=== PATIENT | female | born 1970 | race Caucasian/White ===

== ENCOUNTER 2022-11-22 02:00 | Outpatient (CLI) | payer BC, SELFPAY | END 2022-11-22 02:01 | disposition home or self-care (01) | LOC: AMB 11-23 09:13 | PROVIDERS: Visit Provider Family Medicine | DX: R45.851 Suicidal ideations (principal) | CPT/HCPCS: A0425; A0427 ==

== ENCOUNTER 2022-11-22 03:10 | Emergency (ER) | payer BC, SELFPAY ==
[2022-11-22 03:15] VITALS: O2SAT 88
[2022-11-22] MEDS: ONDANSETRON 2 MG/ML inj 4 MG IVP (03:20)
[2022-11-22] MEDS: 0.9 % SODIUM CHLORIDE 1000 ml 1,000 ML 2000 ML IV (03:20)
[2022-11-22 03:28] VITALS: BP 135/96; PULSE 99; RESP 18; TEMP 36.8; O2SAT 88; BMI 20.9
[2022-11-22 03:32] LABS: Basophils Absolute Auto 0.05 K/uL (0.00-0.30); Basophils Percent Auto 0.5 % (0.0-3.0); Eosinophils Absolute Auto 0.15 K/uL (0.00-0.50); Eosinophils Percent Auto 1.4 % (0.0-7.0); Hematocrit 44.6 % (33.0-51.0); Hemoglobin* 14.7 gm/dL (12.0-16.0); Immature Granulocytes Abs Auto 0.01 K/uL (0.00-0.30); Immature Granulocytes Pct Auto 0.1 %; Lymphocytes Absolute Auto 2.13 K/uL (0.90-2.90); Lymphocytes Percent Auto 20.2 % (20-44); Mean Corpuscular HGB Conc 33 gm/dL (32-36); Mean Corpuscular Hemoglobin 32 pg (26-34); Mean Corpuscular Volume 98 fL (80-100); Monocytes Percent Auto 8.6 % (0.0-11.0); Neutrophils Absolute Auto 7.32 K/uL (1.7-7.0); Neutrophils Percent Auto 69.2 % (42.0-72.0); Platelet Count* 237 K/uL (140-440); Red Blood Count 4.57 m/uL (4.00-5.20); White Blood Count* 10.57 K/uL (4.50-11.00)
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
[2022-11-22 03:44] LABS: Chloride* 103 mmol/L (96-114)
[2022-11-22 03:45] LABS: Potassium* 4.1 mmol/L (3.6-5.1); Sodium* 140 mmol/L (135-149)
[2022-11-22 03:47] LABS: Creatinine* 0.6 mg/dL (0.5-1.5); Est. Creatinine Clearance* 90.73; Estimated Glomerular Filt Rate 108 ml/min; Ethanol* 0.09 % (0.01-0.03); Magnesium* 2.3 mg/dL (1.5-2.6)
[2022-11-22 03:48] LABS: Anion Gap 9 mEq/L (7-15); Blood Urea Nitrogen* 11 mg/dL (7-30); Calcium* 9.2 mg/dL (8.4-10.6); Carbon Dioxide* 28 mmol/L (20-32); Glucose* 112 mg/dL (60-115)
[2022-11-22 03:55] VITALS: O2SAT 96
[2022-11-22 03:57] LABS: Acetaminophen* < 10.0 ug/mL (10.0-30.0); Salicylate* < 1.0 mg/dL (1.0-10); Slide Review Reflex No
[2022-11-22 04:07] VITALS: BP 145/100; PULSE 105; RESP 22; O2SAT 95
[2022-11-22] MEDS: OLANZapine 5 MG/ML inj IVP (04:19)
--- NOTE | 2022-11-22 04:20 | PC.NURSE ---
at bedside with patient. patient became very agitated pulling monitoring equipment off, states she doesn't know what we gave her and she is so scared that she is going to screen writer and second nurse along with in room, reassurance given and medication education provided to both husan. patient agreeable to taking Zyprexa. medication administered per EMAR. patient states she feels a little better and is given a drink of water. continues to be at bedside. care continues.
--- NOTE | 2022-11-22 04:24 | PC.NURSE ---
patients at bedside, patient visualized on monitor for safety. patient became agitated and started pulling monitoring equipment off and stating I dont know what you guys gave me, Im so scared, I am going to keno writer/runner offered PRN medication Zyprexa and patient very upset, education given to patient and about medication and patient is agreeable to try to take this to help her feel better. Zyprexa given per EMAR. at bedside, reassessment done and patient states she is starting to feel better after medication. patient remains on video monitor, care continues per protocol.
[2022-11-22 04:41] VITALS: BP 130/83; PULSE 102; RESP 18; O2SAT 96
--- NOTE | 2022-11-22 05:58 | PC.NURSE ---
patient notified of 72 hour hold, given copy of the hold and also given patient rights. patient stated understanding
[2022-11-22 06:08] LABS: Amphetamine Screen Urine Negative (Negative); Barbiturate Screen Urine Negative (Negative); Benzodiazepines Screen Urine Negative (Negative); Cannabinoid Screen Urine Negative (Negative); Cocaine Screen Urine Negative (Negative); Methadone Screen Urine Negative (Negative); Methamphetamines Screen Urine Negative (Negative); Opiate Screen Urine Negative (Negative); Oxycodone Screen Urine POSITIVE (Negative); Phencyclidine Screen Urine Negative (Negative); Tricyclic Antidepressant Urine Negative (Negative)
--- NOTE | 2022-11-22 06:09 | PC.NURSE ---
patient awoke from resting, and stated to functional tester typewriters that she was going to leave, and removed all monitoring equipment, asked if she could take out her own IV because she was going to leave, notified and called to room to discuss plan of care with patient and patients . patient walked out of ER when Dr discussed 72 hour hold with her and , patient walked out into the parking lot. functional tester typewriters followed patient to [facility] and asked her to stop walking and discuss her plan, patient stated I am leaving, I want to go home, Im going to leave I have the right to leave MD and followed out to [facility] and reiterated to patient that she needed to stay in order to get the help she needs and that her 72 hour hold prevents her from leaving the facility. patient refused to come back into building and instead stood in parking lot and repeated to , jenni I want to go home, just take me home, you can take me home. patient walked to her husbands parked car and stated she just needed a cigarette patient advised that we can offer nicotine replacement and need her to come back into the ER to properly monitor her safety while she is under our care and to allow her to talk with DEC customer assistant. Police called due to patient refusing to come back into facility. patient stated to functional tester typewriters that she would come back in but continued to sit on the curb by her husbands truck. once PD arrived patient did agree to come back into facility. patient walked into facility accompanied by . patient currently participating with DEC assessment. patent visualized on video monitor for safety. copy of 72 hour hold given to patient along with copy of patient rights. patient rights read to patient and patients . patient stated understanding.
--- NOTE | 2022-11-22 06:51 | PC.NURSE ---
patient finished talking with SANDIE wynne
[2022-11-22 07:40] VITALS: BP 117/85; PULSE 91; RESP 18; O2SAT 93
== END 2022-11-22 07:43 | disposition home or self-care (01) ==
PROVIDERS: Emergency Provider Family Medicine
DX: R45.851 Suicidal ideations (principal); R41.82 Altered mental status, unspecified; F10.129 Alcohol abuse with intoxication, unspecified
CPT/HCPCS: 36415; 80048; 80143; 80179; 80306; 82077; 82140; 83735; 85025; 93005; 94761; 96374; 96375; 99284; 99291; J2405; J7030; S0166